=== PATIENT | female | born 1955 | race Caucasian/White ===

== ENCOUNTER 2016-12-27 07:54 | Emergency (ER) | payer OTHER ==
[~2016-12-27] VITALS: Ht 162.6 cm; Wt 65.0 kg
[~2016-12-27 07:54] MED LIST: Z.0.NO CURRENT MEDS
[2016-12-27 07:56] VITALS: BP 149/99; PULSE 109; RESP 16; TEMP 98.1; O2SAT 99
[2016-12-27 07:59] VITALS: PULSE 87
--- NOTE | 2016-12-27 08:13 | PD ---
HPI Chief Complaint: Fall Time Seen by Provider: 08:12 Travel History International Travel<30 days: No Contact w/Intl Traveler<30days: No Traveled to known affect area: No History of Present Illness HPI 61-year-old female presents emergency Department with complaint of right elbow and right hand pain, right elbow abrasion, right hand abrasion/laceration after slipping and falling this morning at approximately 4 AM on wet cement. Denies hitting her head or loss consciousness. Denies neck pain or back pain. Denies anticoagulants. Denies paresthesias, loss of sensation to the affected extremity. Reports decreased range of motion at the elbow secondary to pain. Reports hand pain. Denies decreased range of motion of the fingers. Denies wrist pain. Consider moderate in severity. Took 400 mg of Motrin at approximately 6 a.m. this morning. He is not up-to-date on tetanus vaccination. Has no other medical complaints. No known allergies. No other modifying factors or associated signs and symptoms. PFSH Past Medical History Cancer: No Cardiovascular Problems: No Diabetes: No Diminished Hearing: No Endocrine: No GERD: Yes Genitourinary: Yes Hepatitis: No Hiatal Hernia: Yes (GERD, ACID REFLUX) Immune Disorder: No Musculoskeletal: No Neurologic: No Psychiatric: No Reproductive: No Respiratory: No Thyroid Disease: No ?: Not Menopausal: Yes Dilation and Curettage (D&C): Yes Past Surgical History Genitourinary Surgery: Yes (RIGHT NEPRECTOMY, NON FUNCTIONING KIDNEY) Gynecologic Surgery: Yes (D&C) Oral Surgery: Yes (TONSILLECTOMY) Pacemaker: No Tonsillectomy: Yes Other Surgery: Yes Social History Alcohol Use: Yes (OCCASIONALLY) Tobacco Use: No Substance Use: No Allergies-Medications (Allergen,Severity, Reaction): Coded Allergies: No Known Allergies (Verified , 12/27/16) Reported Meds & Prescriptions Reported Meds & Active Scripts Active Ibuprofen 600 Mg Tab 600 Mg PO Q6H PRN Keflex (Cephalexin) 500 Mg Cap 500 Mg PO Q8H 7 Days Review of Systems Except as stated in HPI: all other systems reviewed are Neg Physical Exam Narrative GENERAL: Well-nourished, well-developed female patient, in no acute distress SKIN: Warm and dry. Abrasion to elbow. Deep abrasion/laceration to dorsal aspect of right hand; bleeding controlled; fingers with full range of motion, sensory intact, and less than 3 second cap refill. HEAD: Atraumatic. Normocephalic. EYES: Pupils equal and round. No scleral icterus. No injection or drainage. ENT: Mucosa pink and moist. Airway patent. NECK: Moving freely. Trachea midline. CARDIOVASCULAR: Regular rate. RESPIRATORY: No accessory muscle use. GASTROINTESTINAL: Flat. 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 Right Upper extremity supple and nontense with 2+ radial pulse and sensory intact. No obvious deformities. No clubbing. No cyanosis. No edema. NEUROLOGICAL: Awake and alert. Oriented 3. No obvious cranial nerve deficits. Motor grossly within normal limits. Normal speech. PSYCHIATRIC: Appropriate mood and affect; insight and judgment normal. Data Data Last Documented VS Vital Signs Date Time Temp Pulse Resp B/P (MAP) Pulse Ox O2 Delivery O2 Flow Rate FiO2 12/27/16 09:30 12/27/16 07:59 87 12/27/16 07:56 98.1 16 99 Orders Orders Elbow, Complete (4 Vws) (12/27/16 08:11) Hand, Complete ([id number]) (12/27/16 08:11) Tetanus/Diphtheria Tox Adult (Tetanus/Di (12/27/16 08:15) Lidocaine 1% Inj (50 Ml) (Xylocaine 1% I (12/27/16 08:15) Ibuprofen (Motrin) (12/27/16 08:15) Sling Cradle Arm (12/27/16 ) Wound Care (12/27/16 09:26) Sling Cradle Arm (12/27/16 ) MDM Medical Decision Making Medical Screen Exam Complete: Yes Emergency Medical Condition: Yes Medical Record Reviewed: Yes Differential Diagnosis Fall, elbow contusion, elbow fracture, hand fracture, hand abrasion, hand laceration Narrative Course 61-year-old female with right elbow laceration, right hand laceration, right elbow injury, and right hand injury after a mechanical slip and fall this morning. Denies hitting her loss of consciousness. Denies neck pain or back pain. Denies anticoagulants. Tetanus updated in the ER. Ibuprofen administered in the ER. See my procedure note for laceration repair. Right hand and elbow x-ray ordered. 0925: Right hand and elbow x-rays no acute findings. Arm sling provided for support, per patient request. Keflex and ibuprofen prescribed for home. Instructed patient to follow up with primary care provider. Patient verbalizes understanding and agreement with treatment plan. Patient is medically cleared and stable for discharge. Discussed reasons to return to the emergency department. Patient agrees with treatment plan. The patients vital signs are stable and the patient is stable for outpatient follow-up and treatment. Patient discharged home, stable and in no acute distress. Procedures Procedure Narrative LACERATION LOCATION: Right elbow LENGTH: 0.5 cm NUMBER OF STITCHES/NINA: 1 simple interrupted suture REPAIR: The area of the laceration was prepped with Betadine and sterilely draped. The laceration was infiltrated with 1% lidocaine. The wound was copiously irrigated and explored without evidence of foreign body, tendon injury or neurovascular injury. The wound was closed using 4-0 Prolene. This was a single layer repair. A sterile dressing was applied. The patient was advised to keep the dressing clean and dry. Patient tolerated the procedure well. LACERATION LOCATION: Dorsal aspect of right hand LENGTH: 2 cm NUMBER OF STITCHES/NINA: 4 simple interrupted suture REPAIR: The area of the laceration was prepped with Betadine and sterilely draped. The laceration was infiltrated with 1% lidocaine. The wound was copiously irrigated and explored without evidence of foreign body, tendon injury or neurovascular injury. The wound was closed using 4-0 Vicryl. This was a single layer repair. A sterile dressing was applied. The patient was advised to keep the dressing clean and dry. Patient tolerated the procedure well. Diagnosis Primary Impression: Contusion of elbow, right Qualified Codes: S50.01XA - Contusion of right elbow, initial encounter Additional Impressions: Laceration of elbow, right Qualified Codes: S51.011A - Laceration without foreign body of right elbow, initial encounter Abrasion of hand, right Qualified Codes: S60.511A - Abrasion of right hand, initial encounter Laceration of hand, right Qualified Codes: S61.411A - Laceration without foreign body of right hand, initial encounter Referrals: Primary Care Physician Patient Instructions: Acute Wound Care (DC), Care For Your Stitches (ED), General Instructions Departure Forms: Tests/Procedures, Work Release Enter return to work date: Dec 29, 2016 Additional Instructions: Tylenol or ibuprofen as directed and as needed to reduce pain Rest, ice, compress, and elevate extremity to decrease pain and inflammation Avoid aggravating activity; increase activity as tolerated Follow-up with primary care provider Return to the emergency department immediately with worsening symptoms Keep area clean and dry Limit right hand activity to decrease risk of sutures coming undone Ibuprofen every 6 hours as directed and as needed for pain Ice pack to area as needed to decrease pain Return to the emergency department or follow-up with primary care provider in 7- 10 days for suture removal Follow up with primary care provider within 2-4 days Return to the emergency department immediately with worsening of symptoms, particularly if reddened streaks up or down the affected extremity from the suture site, fever, numbness/tingling in the affected extremity, loss of sensation in the affected extremity, severe swelling of the affected Med/Other Pt SpecificInfo: Prescription(s) given Scripts Ibuprofen (Ibuprofen) 600 Mg Tab 600 MG PO Q6H Y for PAIN, #30 TAB 0 Refills Prov: Whitney Ku 12/27/16 Cephalexin (Keflex) 500 Mg Cap 500 MG PO Q8H for Infection for 7 Days, CAP 0 Refills Prov: Whitney Ku 12/27/16 Disposition: 01 DISCHARGE HOME Condition: Stable Whitney Ku Dec 27, 2016 08:13
[2016-12-27] MEDS ORDERED: IBUPROFEN 400 MG TAB PO ONE (08:15)
[2016-12-27] MEDS ORDERED: LIDOCAINE HCL 1% 50 ML VIAL INFIL ONE (08:15)
[2016-12-27] MEDS ORDERED: TETANUS/DIPHTHERIA TOXOID ADULT 0.5 ML VIAL IM ONE (08:15)
[2016-12-27] MEDS ORDERED: CEPH-460 PO (08:41)
[2016-12-27] MEDS ORDERED: IBUP-232 PO (08:41)
--- NOTE | 2016-12-27 08:51 | RADRPT ---
EXAM DATE/TIME: 12/27/2016 08:27 [facility] COMPARISON: No previous studies available for comparison. INDICATIONS : Fall, right elbow pain and laceration. MEDICAL HISTORY : None. SURGICAL HISTORY : None. ENCOUNTER: Initial ACUITY: 1 day PAIN SCORE: 5/10 LOCATION: Right elbow FINDINGS: Multiple view examination of the right elbow demonstrates no soft tissue swelling, joint effusion, or fracture. The osseous structures are in normal alignment. Bony mineralization is normal. CONCLUSION: No evidence of acute fracture, dislocation or joint effusion. Jamin Andrews MD on December 27, 2016 at 8:46 Board Certified Radiologist. This report was verified electronically.
--- NOTE | 2016-12-27 09:05 | RADRPT ---
EXAM DATE/TIME: 12/27/2016 08:24 [facility] COMPARISON: No previous studies available for comparison. INDICATIONS : Fall, right hand pain and laceration. MEDICAL HISTORY : None. SURGICAL HISTORY : None. ENCOUNTER: Initial ACUITY: 1 day PAIN SCORE: 5/10 LOCATION: Right hand FINDINGS: Three view examination of the right hand demonstrates no soft tissue swelling, dislocation, or fractu re. The carpal bones appear intact. Degenerative osteophyte changes at the first MCP joint as well as all the DIP joints. Bony mineralization is normal. CONCLUSION: 1. Degenerative osteoarthritic changes as detailed above. 2. No acute fracture. Zain Lindsay MD on December 27, 2016 at 9:02 Board Certified Radiologist. This report was verified electronically.
== END 2016-12-27 09:41 | disposition home or self-care (01) ==
LOC: NEPK 07:54
DX: S50.01XA Contusion of right elbow, initial encounter (principal); S51.011A Laceration without foreign body of right elbow, initial encounter; S61.411A Laceration without foreign body of right hand, initial encounter; S60.511A Abrasion of right hand, initial encounter; K21.9 Gastro-esophageal reflux disease without esophagitis; Z23 Encounter for immunization; W01.0XXA Fall on same level from slipping, tripping and stumbling without subsequent striking against object, initial encounter
CPT/HCPCS: 12001; 73080; 73130; 90471; 90714

== ENCOUNTER 2017-01-22 19:00 | Emergency (ER) | payer OTHER ==
[~2017-01-22 19:00] MED LIST changes: +CEPH-460 PO; +IBUP-232 PO; -Z.0.NO CURRENT MEDS
[2017-01-22 19:02] VITALS: BP 134/86; PULSE 87; RESP 16; TEMP 97.9; O2SAT 97
--- NOTE | 2017-01-22 20:17 | PD ---
HPI Chief Complaint: Musculoskeletal Complaint Time Seen by Provider: 19:35 Travel History International Travel<30 days: No Contact w/Intl Traveler<30days: No History of Present Illness HPI Patient is a 61-year-old female presenting to emergency evaluation of left knee pain. Patient states she ran into her trailer had to approximate 4 PM. She is able to bear weight but states it's swollen and feels as if she could have fractured her knee. Patient has been icing it which is helping with the pain. She reports the pain as a 2 out of 10 and states it's sore. Her last tetanus vaccine was a few months ago. PFSH Past Medical History Cancer: No Cardiovascular Problems: No Diabetes: No Diminished Hearing: No Endocrine: No Gastrointestinal Disorders: Yes GERD: Yes Genitourinary: Yes Hepatitis: No Hiatal Hernia: Yes (GERD, ACID REFLUX) Hypertension: No Immune Disorder: No Medical other: No Musculoskeletal: No Neurologic: No Psychiatric: No Reproductive: No Respiratory: No Thyroid Disease: No Menopausal: Yes Dilation and Curettage (D&C): Yes Past Surgical History Genitourinary Surgery: Yes (RIGHT NEPRECTOMY, NON FUNCTIONING KIDNEY) Gynecologic Surgery: Yes (D&C) Oral Surgery: Yes (TONSILLECTOMY) Pacemaker: No Tonsillectomy: Yes Other Surgery: Yes Social History Alcohol Use: Yes (OCCASIONALLY) Tobacco Use: No Substance Use: No Allergies-Medications (Allergen,Severity, Reaction): Coded Allergies: No Known Allergies (Verified , 12/27/16) Reported Meds & Prescriptions Reported Meds & Active Scripts Active No Active Prescriptions or Reported Medications Physical Exam Narrative GENERAL: Well-developed, well-nourished, alert female. Resting comfortably in no acute distress. SKIN: Warm and dry. Superficial abrasion to left anterior knee HEAD: Normocephalic. EYES: No scleral icterus. No injection or drainage. NECK: Supple, trachea midline. No JVD or lymphadenopathy. CARDIOVASCULAR: Regular rate and rhythm without murmurs, gallops, or rubs. RESPIRATORY: Breath sounds equal bilaterally. No accessory muscle use. GASTROINTESTINAL: Abdomen soft, non-tender, nondistended. MUSCULOSKELETAL: No cyanosis, mild edema noted to lateral aspect of left anterior knee. No obvious deformities noted. Patient is neurovascularly intact. BACK: Nontender without obvious deformity. No CVA tenderness. Data Data Last Documented VS Vital Signs Date Time Temp Pulse Resp B/P (MAP) Pulse Ox O2 Delivery O2 Flow Rate FiO2 01/22/17 19:02 97.9 87 16 134/86 (102) 97 Room Air Orders Orders Knee, Ltd (1 Or 2vws) (01/22/17 ) MDM Medical Decision Making Medical Screen Exam Complete: Yes Emergency Medical Condition: Yes Interpretation(s) Last Impressions Knee X-Ray 01/22/17 0000 Signed Impressions: Service Date/Time: Sunday, January 22, 2017 20:11 - CONCLUSION: No acute disease. Alexander Cobb MD Vital Signs Date Time Temp Pulse Resp B/P (MAP) Pulse Ox O2 Delivery O2 Flow Rate FiO2 01/22/17 19:02 97.9 87 16 134/86 (102) 97 Room Air Differential Diagnosis Abrasion versus contusion versus fracture versus other Narrative Course Patient presented for evaluation of left knee after hitting a trailer hitch. X- ray ordered and pending. Patient declined pain medication. Diagnosis Primary Impression: Contusion, knee Qualified Codes: S80.02XA - Contusion of left knee, initial encounter Referrals: Primary Care Physician Patient Instructions: Contusion in Adults (ED), General Instructions Additional Instructions: Follow-up with her primary doctor Alternate heat and ice the affected area, continue range of motion exercises, avoid bed rest, avoid exacerbating activities Take [id number] acetaminophen or ibuprofen as needed and as directed for pain Return to emergency department for any new or worsening symptoms Med/Other Pt SpecificInfo: No Change to Meds Scripts No Active Prescriptions or Reported Meds Disposition: 01 DISCHARGE HOME Condition: Stable Anita Rodriguez Jan 22, 2017 20:16
--- NOTE | 2017-01-22 20:53 | RADRPT ---
EXAM DATE/TIME: 01/22/2017 20:11 [facility] COMPARISON: No previous studies available for comparison. INDICATIONS : Fell into ditch today. MEDICAL HISTORY : None. SURGICAL HISTORY : None. ENCOUNTER: Initial ACUITY: 1 day PAIN SCORE: 4/10 LOCATION: Left lateral condyle contusion FINDINGS: Two view examination of the left knee demonstrates no evidence of fracture or dislocation. Bony mine ralization is normal. The suprapatellar soft tissues have a normal configuration. CONCLUSION: No acute disease. Alexander Cobb MD on January 22, 2017 at 20:51 Board Certified Radiologist. This report was verified electronically.
== END 2017-01-22 21:52 | disposition home or self-care (01) ==
LOC: NEPD 19:00
DX: S80.02XA Contusion of left knee, initial encounter (principal); W22.8XXA Striking against or struck by other objects, initial encounter
CPT/HCPCS: 73560; 99283